=== PATIENT | male | born 1990 | race American Indian/Alaskan Native ===

== ENCOUNTER 2016-12-04 09:44 | Emergency (ER) | payer OTHER ==
--- NOTE | 2016-12-05 13:13 | Vascular Lab Report ---
RENAL ARTERY DUPLEX EXAM: REASON FOR EXAM: Renal artery stenosis. NOTE: Visualization is technically adequate. COMMENTS ON THE AORTA: The aorta is patent. Normal flow velocities are observed. No aneurysmal dilatation is noted. Mild atherosclerotic change is identified. The celiac artery is patent with normal flow velocity. The superior mesenteric artery is patent with normal flow velocity. COMMENTS ON THE RIGHT KIDNEY: The kidney measures 11.2 centimeters in greatest dimension. No obvious parenchymal abnormalities are noted. The renal artery is patent. Maximum systolic velocity is 149 cm/sec. This finding is consistent with less than 60% diameter reduction. Overall findings are consistent with less than 60% diameter reduction in the renal artery. COMMENTS ON THE LEFT KIDNEY: The kidney measures 10.9 centimeters in greatest dimension. No obvious parenchymal abnormalities are noted. The renal artery is patent. Maximum systolic velocity is 115 cm/sec. This finding is consistent with less than 60% diameter reduction. Overall findings are consistent with less than 60% diameter reduction in the renal artery. IMPRESSION: RIGHT KIDNEY: Less than 60% diameter reduction in the renal artery. LEFT KIDNEY: Less than 60% diameter reduction in the renal artery.
== END 2016-12-04 13:15 | disposition left against medical advice (07) ==
LOC: ED 09:44 → VAS 09:44
DX: I10 Essential (primary) hypertension (principal); Z53.21 Procedure and treatment not carried out due to patient leaving prior to being seen by health care provider
CPT/HCPCS: 93306; 93975

== ENCOUNTER 2016-12-05 07:17 | Emergency (ER) | payer OTHER ==
[2016-12-05 07:50] LABS: Hemoglobin 15.4 gm/dl (11.8-15.2); Mean Corpuscular HGB Conc 34 % (32-34); Mean Corpuscular Hemoglobin 31 pg (28-32); Mean Corpuscular Volume 91 fl (84-94); Red Blood Count 4.95 M/mm3 (3.65-5.03); Red Cell Distribution Width 12.4 % (13.2-15.2); White Blood Count 4.8 K/mm3 (4.5-11.0)
[2016-12-05 08:08] LABS: Anion Gap 17 mmol/L; Blood Urea Nitrogen 12 mg/dL (9-20); Calcium 9.4 mg/dL (8.4-10.2); Carbon Dioxide 29 mmol/L (22-30); Chloride 98.8 mmol/L (98-107); Glucose 92 mg/dL (75-100); Potassium 4.5 mmol/L (3.6-5.0); Sodium 140 mmol/L (137-145)
[2016-12-05 08:43] LABS: Basophils % (Manual) 0 % (0.0-1.8); Blastocytes % (Manual) 0 %
[2016-12-05 08:44] LABS: Diff Status Complete; Platelet Estimate Consistent w Auto; RBC Morphology Normal
[2016-12-05 08:51] LABS: Platelet Count 112 K/mm3 (140-440)
[2016-12-05] MEDS ORDERED: APRESOLINE PO ONE (10:16)
--- NOTE | 2016-12-05 10:18 | Emergency Department Report ---
HPI - General Chief Complaint: High BP Time Seen by Provider: 12/05/16 10:03 - HPI HPI: This is a 26-year-old Afro-[place] male presents to the emergency department with concern of hypertension. The patient has been seeing his primary care physician and/or PA for this recently and was sent for an outpatient echocardiogram and renal ultrasound. The results showed some LVH but otherwise no significant abnormalities. The patient has an appointment again tomorrow with his physician but said that he checked his blood pressure this morning after taking his blood pressure medications and it was elevated so he came in to be seen. He denies any headache, visual change, chest pain, shortness breath or any other physical complaints. He is on Norvasc 5 milligrams which she takes twice daily, as well as losartan-HCTZ. ED Past Medical Hx - Past Medical History Previous Medical History?: Yes Hx Hypertension: Yes - Surgical History Past Surgical History?: No - Social History Smoking Status: Current Every Day Smoker Substance Use Type: Prescribed ED Review of Systems ROS: Stated complaint: POSS HIGH BP Other details as noted in HPI Comment: All other systems reviewed and negative Constitutional: denies: chills, fever Eyes: denies: eye pain, eye discharge, vision change ENT: denies: ear pain, throat pain Respiratory: denies: cough, shortness of breath, wheezing Cardiovascular: denies: chest pain, palpitations Gastrointestinal: denies: abdominal pain, nausea, diarrhea Genitourinary: denies: urgency, dysuria Musculoskeletal: denies: back pain, joint swelling, arthralgia Skin: denies: rash, lesions Neurological: denies: headache, weakness, paresthesias Physical Exam - Physical Exam Vital Signs: Vital Signs 12/05/16 07:20 Temperature 97.4 F L Pulse Rate 87 Respiratory 18 Rate Blood Pressure 161/101 O2 Sat by Pulse 100 Oximetry Physical Exam: GENERAL: The patient is well-developed well-nourished. HEENT: Normocephalic. Atraumatic. Extraocular motions are intact. Patient has moist mucous membranes. Pupils equal reactive to light bilaterally. NECK: Supple. Trachea is midline. CHEST/LUNGS: Clear to auscultation. There is no respiratory distress noted. HEART/CARDIOVASCULAR: Regular. There is no tachycardia. There is no gallop rub or murmur. ABDOMEN: Abdomen is soft, nontender. Patient has normal bowel sounds. There is no abdominal distention. SKIN: There is no rash. There is no edema. There is no diaphoresis. NEURO: The patient is awake, alert, and oriented. The patient is cooperative. The patient has no focal neurologic deficits. The patient has normal speech. MUSCULOSKELETAL: There is no tenderness or deformity. There is no limitation range of motion. There is no evidence of acute injury. ED Course Vital Signs 12/05/16 07:20 Temperature 97.4 F L Pulse Rate 87 Respiratory 18 Rate Blood Pressure 161/101 O2 Sat by Pulse 100 Oximetry ED Medical Decision Making - Lab Data Result diagrams: 12/05/16 07:39 12/05/16 07:39 - EKG Data -: EKG Interpreted by Me EKG shows normal: sinus rhythm, axis, intervals, QRS complexes, ST-T waves Rate: normal - EKG Data When compared to previous EKG there are: previous EKG unavailable Interpretation: normal EKG - Medical Decision Making 26-year-old male presents to the emergency department with complaint of hypertension. The patient had a echocardiogram outpatient yesterday that shows LVH and some mild regurgitation but otherwise no significant signs of cardiomyopathy. The renal ultrasound from yesterday has not yet been read. Today the patient denies any physical complaints but says that his blood pressure was elevated after taking his morning blood pressure medications so he came in for further evaluation. He has an appointment with his primary care doctor tomorrow. He did present with some elevated blood pressure of 160/100. However came down to a even more reasonable level prior to discharge without any further antihypertensives medication. He does use tobacco and has a poor diet. I discussed with him about these dietary and lifestyle changes and keeping a blood pressure log. He will follow-up with his primary care doctor and will return to the ER with any worsening of his symptoms or any acute distress. - Differential Diagnosis essential hypertension, renal vascular hypertension, tobacco abuse Critical Care Time: No Critical care attestation.: If time is entered above; I have spent that time in minutes in the direct care of this critically ill patient, excluding procedure time. ED Disposition Clinical Impression: Hypertension Qualifiers: Hypertension type: essential hypertension Qualified Code(s): I10 - Essential ( primary) hypertension Disposition: DC-01 TO HOME OR SELFCARE Is pt being admited?: No Condition: Stable Instructions: Hypertension (ED) Additional Instructions: Follow-up with your primary care physician tomorrow as previously scheduled. Try to stay away from foods that are high in salt and caffeinated products to help with her blood pressure. Try to stay away from any tobacco products. Return to the emergency department with any development of chest pain, shortness of breath, uncontrolled and elevated blood pressure, or any acute distress. Referrals: PRIMARY CARE, [Primary Care Provider] - 24 Hours Time of Disposition: 10:59
[2016-12-05 10:53] VITALS: BP 147/99
== END 2016-12-05 11:35 | disposition home or self-care (01) ==
LOC: ED 07:17
DX: I10 Essential (primary) hypertension (principal); F17.200 Nicotine dependence, unspecified, uncomplicated
CPT/HCPCS: 36415; 80048; 84484; 85007; 85025; 93005; 93010